=== PATIENT | female | born 1980 ===

== ENCOUNTER 2020-01-30 23:53 | Emergency (ER) | payer SELFPAY ==
[2020-01-31] MEDS ORDERED: KETOROLAC 30 MG/1 ML INJ IV ONE (01:02)
[2020-01-31] MEDS ORDERED: ONDANSETRON 4 MG/2 ML INJ IV ONE (01:02)
[2020-01-31] MEDS ORDERED: MECLIZINE 25 MG TAB PO ONE (01:02)
[2020-01-31] MEDS ORDERED: SODIUM CHLORIDE 0.9% 1000 ML 1,000 ML IV ONE (01:02)
--- NOTE | 2020-01-31 01:22 | Emergency Department Report ---
ED Dizziness HPI - General Chief Complaint: Dizziness Stated Complaint: DIZZINESS/SYNCOPE Time Seen by Provider: 01/31/20 00:46 Source: patient, EMS Mode of arrival: Stretcher Limitations: Language Barrier - History of Present Illness Initial Comments: 39-year-old female with no significant past medical history presents to the hospital planing of headache, dizziness, nausea, vomiting, syncope, and abdominal pain. [employer] used since patient is Filipino-speaking only. Patient has had a frontal headache since yesterday morning with nausea, dizzines s, and unsteady gait. This evening she developed 3 [id number] episodes of vomiting with blurry vision followed by syncope. Patient complains of persistent frontal headache at this time. She complains of a little bit of abdominal pain in the upper abdomen. - Related Data Previous Rx's Medication Instructions Recorded Last Taken Type Ibuprofen [Motrin] 800 mg PO Q8HR PRN #20 tablet 01/31/20 Unknown Rx Meclizine [Antivert] 25 mg PO TID PRN #30 tablet 01/31/20 Unknown Rx Ondansetron [Zofran Odt] 4 mg PO Q6H PRN #20 tab.rapdis 01/31/20 Unknown Rx Allergies Allergy/AdvReac Type Severity Reaction Status Date / Time No Known Allergies Allergy Unverified 01/31/20 00:25 ED Review of Systems ROS: Stated complaint: DIZZINESS/SYNCOPE Other details as noted in HPI Comment: All other systems reviewed and negative ED Past Medical Hx - Past Medical History Previous Medical History?: No - Social History Smoking Status: Never Smoker Substance Use Type: None - Medications Home Medications: Home Medications Medication Instructions Recorded Confirmed Last Taken Type Ibuprofen [Motrin] 800 mg PO Q8HR PRN #20 tablet 01/31/20 Unknown Rx Meclizine [Antivert] 25 mg PO TID PRN #30 tablet 01/31/20 Unknown Rx Ondansetron [Zofran Odt] 4 mg PO Q6H PRN #20 tab.rapdis 01/31/20 Unknown Rx ED Physical Exam - General Limitations: Language Barrier - Other Other exam information: General: No acute distress Head: Atraumatic Eyes: normal appearance, MICHELINE, + horizontal nystagmus and increased dizziness when looking to the left ENT: Moist mucous membranes Neck: Normal appearance, no midline tenderness Chest: Clear to auscultation bilaterally CV: Regular rate and rhythm Abdomen: Soft, normal bowel sounds, mild upper abdomen tenderness, nondistended, no rebound or guarding Back: Normal inspection Extremity: Normal inspection, full range of motion Neuro: Alert O x 3, no facial asymmetry, speech clear, finger nose finger intact. 5/5 upper lower extremity strength with grossly intact sensation Psych: Appropriate behavior Skin: No rash ED Course Vital Signs 01/31/20 01/31/20 01/31/20 00:12 00:16 00:29 Temperature 98.4 F Pulse Rate 65 72 72 Respiratory 10 L 17 18 Rate Blood Pressure 119/72 O2 Sat by Pulse 99 100 Oximetry 01/31/20 01/31/20 01:00 02:00 Temperature Pulse Rate 82 64 Respiratory 18 18 Rate Blood Pressure 119/72 114/66 O2 Sat by Pulse 100 100 Oximetry - Reevaluation(s) Reevaluation #1: 01/31/20 02:59 pt feels better with ed tx that included Toradol, meclizine, Zofran, and normal saline. 01/31/20 03:24 Patient was ambulated around the department and has a steady gait with only mild dizziness with initially standing and feels much better ED Medical Decision Making - Lab Data Result diagrams: 01/31/20 00:30 01/31/20 00:30 Lab Results 01/31/20 01/31/20 01/31/20 Range/Units 00:30 00:30 00:30 WBC 8.3 (4.5-11.0) K/mm3 RBC 4.23 (3.65-5.03) M/mm3 Hgb 11.3 (10.1-14.3) gm/dl Hct 34.7 (30.3-42.9) % MCV 82 (79-97) fl MCH 27 L (28-32) pg MCHC 33 (30-34) % RDW 15.7 H (13.2-15.2) % Plt Count 254 (140-440) K/mm3 Lymph % (Auto) 25.3 (13.4-35.0) % [place] % (Auto) 6.6 (0.0-7.3) % Eos % (Auto) 2.2 (0.0-4.3) % Baso % (Auto) 0.4 (0.0-1.8) % Lymph # 2.1 (1.2-5.4) K/mm3 [place] # 0.5 (0.0-0.8) K/mm3 Eos # 0.2 (0.0-0.4) K/mm3 Baso # 0.0 (0.0-0.1) K/mm3 Seg Neutrophils % 65.5 (40.0-70.0) % Seg Neutrophils # 5.4 (1.8-7.7) K/mm3 Sodium 138 (137-145) mmol/L Potassium 3.0 L (3.6-5.0) mmol/L Chloride 101.2 (98-107) mmol/L Carbon Dioxide 23 (22-30) mmol/L Anion Gap 17 mmol/L BUN 16 (7-17) mg/dL Creatinine 0.6 L (0.7-1.2) mg/dL Estimated GFR > 60 ml/min BUN/Creatinine Ratio 27 % Glucose 110 H (65-100) mg/dL Calcium 8.6 (8.4-10.2) mg/dL Magnesium (1.7-2.3) mg/dL Total Bilirubin < 0.20 (0.1-1.2) mg/dL AST 12 (5-40) units/L ALT 10 (7-56) units/L Alkaline Phosphatase 71 (35-129) units/L Total Protein 6.7 (6.3-8.2) g/dL Albumin 4.1 (3.9-5) g/dL Albumin/Globulin Ratio 1.6 % Lipase (13-60) units/L HCG, Qual Negative (Negative) 01/31/20 01/31/20 Range/Units Unknown Unknown WBC (4.5-11.0) K/mm3 RBC (3.65-5.03) M/mm3 Hgb (10.1-14.3) gm/dl Hct (30.3-42.9) % MCV (79-97) fl MCH (28-32) pg MCHC (30-34) % RDW (13.2-15.2) % Plt Count (140-440) K/mm3 Lymph % (Auto) (13.4-35.0) % [place] % (Auto) (0.0-7.3) % Eos % (Auto) (0.0-4.3) % Baso % (Auto) (0.0-1.8) % Lymph # (1.2-5.4) K/mm3 [place] # (0.0-0.8) K/mm3 Eos # (0.0-0.4) K/mm3 Baso # (0.0-0.1) K/mm3 Seg Neutrophils % (40.0-70.0) % Seg Neutrophils # (1.8-7.7) K/mm3 Sodium (137-145) mmol/L Potassium (3.6-5.0) mmol/L Chloride (98-107) mmol/L Carbon Dioxide (22-30) mmol/L Anion Gap mmol/L BUN (7-17) mg/dL Creatinine (0.7-1.2) mg/dL Estimated GFR ml/min BUN/Creatinine Ratio % Glucose (65-100) mg/dL Calcium (8.4-10.2) mg/dL Magnesium 2.00 (1.7-2.3) mg/dL Total Bilirubin (0.1-1.2) mg/dL AST (5-40) units/L ALT (7-56) units/L Alkaline Phosphatase (35-129) units/L Total Protein (6.3-8.2) g/dL Albumin (3.9-5) g/dL Albumin/Globulin Ratio % Lipase 54 (13-60) units/L HCG, Qual (Negative) - EKG Data -: EKG Interpreted by De EKG shows normal: sinus rhythm, ST-T waves (no stemi) Rate: normal - Radiology Data Radiology results: report reviewed CHEST 1 VIEW 0124 INDICATION / CLINICAL INFORMATION: syncope. COMPARISON: None available. FINDINGS: SUPPORT DEVICES: None HEART / MEDIASTINUM: No significant abnormality. LUNGS / PLEURA: Mild bibasilar atelectatic changes are noted. No areas of consolidation are seen. No pneumothorax. ADDITIONAL FINDINGS: No significant additional findings. IMPRESSION: Mild basilar atelectasis CT HEAD WITHOUT CONTRAST INDICATION: headache,n,v,synocpe TECHNIQUE: All CT scans at this location are performed using CT dose reduction for ALARA by means of automated exposure control. COMPARISON: None available. FINDINGS: BRAIN: No hemorrhage or mass effect are seen. No evidence of acute infarction is noted. ORBITS: Normal as visualized. SOFT TISSUES OF HEAD: Normal. CALVARIUM: Normal. VISUALIZED PARANASAL SINUSES AND MASTOID AIR CELLS: Clear. ADDITIONAL FINDINGS: None. IMPRESSION: No acute intracranial abnormality. CT ABDOMEN AND PELVIS WITHOUT CONTRAST INDICATION: upper abd pain, syncope CONTRAST: Without IV COMPARISON: None available. All CT scans at this location are performed using CT dose reduction for ALARA by means of automated exposure control. NOTE: Resolution is decreased and artifact is introduced by the patient's size. FINDINGS: Mild bibasilar atelectatic changes are seen. No pneumoperitoneum is noted. I see no abnormalities of the gallbladder, bile ducts , pancreas, adrenals, or spleen. Slight fatty attrition of the liver is seen with borderline enlargement and a length of 18 cm but without obvious focal lesion. No focal inflammatory changes are seen. No lymphadenopathy is noted. No evidence of bowel obstruction is seen. Appendix appears within normal limits. Tubal ligation clips are noted. Minimal free fluid in the pelvis is nonspecific. No adnexal masses are seen. No significant abdominal wall herniation is noted. IMPRESSION: No acute abnormalities are seen - Medical Decision Making 01/31/20 02:59 pt feels better with ed tx that included Toradol, meclizine, Zofran, and normal saline. 01/31/20 03:24 Patient was ambulated around the department and has a steady gait with only mild dizziness with initially standing and feels much better plan to d/c home with meds and f/u - Differential Diagnosis Vertigo, intracranial mass, ICH, ectopic Critical Care Time: No Critical care attestation.: If time is entered above; I have spent that time in minutes in the direct care of this critically ill patient, excluding procedure time. ED Disposition Clinical Impression: Vertigo, Nausea and vomiting, Syncope, Headache Disposition: DC-01 TO HOME OR SELFCARE Is pt being admited?: No Does the pt Need Aspirin: No Condition: Stable Instructions: Syncope (ED), Vertigo (ED), Acute Headache (ED) Additional Instructions: Take the medication as prescribed. Follow-up with your doctor or doctor/clinic provided. Return if symptoms worsen as indicated by your discharge instructions. Stanley el medicamento segn lo prescrito. Seguimiento con bruno mdico o mdico/clnica proporcionado. Regrese si los sntomas empeoran segn lo su cado por las instrucciones de adrianne. Prescriptions: Meclizine [Antivert] 25 mg PO TID PRN #30 tablet PRN Reason: Vertigo Ibuprofen [Motrin] 800 mg PO Q8HR PRN #20 tablet PRN Reason: Pain , Severe (7-10) Ondansetron [Zofran Odt] 4 mg PO Q6H PRN #20 tab.rapdis PRN Reason: Nausea And Vomiting Referrals: PRIMARY CAREMD [Primary Care Provider] - 3-5 Days QUINCY ARCOS MD [Staff Physician] - 3-5 Days [facility] [Provider Group] - 3-5 Days Time of Disposition: 03:28 Print Language: MARSHALLESE
[2020-01-31 01:25] LABS: Basophils % (Auto) 0.4 % (0.0-1.8); Eosinophils # (Auto) 0.2 K/mm3 (0.0-0.4); Eosinophils % (Auto) 2.2 % (0.0-4.3); Hematocrit 34.7 % (30.3-42.9); Hemoglobin 11.3 gm/dl (10.1-14.3); Lymphocytes # (Auto) 2.1 K/mm3 (1.2-5.4); Lymphocytes % (Auto) 25.3 % (13.4-35.0); Mean Corpuscular HGB Conc 33 % (30-34); Mean Corpuscular Volume 82 fl (79-97); Monocytes # (Auto) 0.5 K/mm3 (0.0-0.8); Monocytes % (Auto) 6.6 % (0.0-7.3); Platelet Count 254 K/mm3 (140-440); Red Blood Count 4.23 M/mm3 (3.65-5.03); Red Cell Distribution Width 15.7 % (13.2-15.2)
[2020-01-31 01:48] LABS: Alanine Aminotransferase 10 units/L (7-56); Albumin 4.1 g/dL (3.9-5); BUN/Creatinine Ratio 27; Blood Urea Nitrogen 16 mg/dL (7-17); Calcium 8.6 mg/dL (8.4-10.2); Hemolysis Index 6
[2020-01-31] MEDS ORDERED: POTASSIUM CHLORIDE ER 20 MEQ TAB PO ONE (01:52)
--- NOTE | 2020-01-31 02:04 | XRay Report ---
CHEST 1 VIEW 0124 INDICATION / CLINICAL INFORMATION: syncope. COMPARISON: None available. FINDINGS: SUPPORT DEVICES: None HEART / MEDIASTINUM: No significant abnormality. LUNGS / PLEURA: Mild bibasilar atelectatic changes are noted. No areas of consolidation are seen. No pneumothorax. ADDITIONAL FINDINGS: No significant additional findings. IMPRESSION: Mild basilar atelectasis Signer Name: Matthew Carrasco MD Signed: 01/31/2020 2:00 AM Workstation Name: [id number]
--- NOTE | 2020-01-31 02:15 | Cat Scan Report ---
CT HEAD WITHOUT CONTRAST INDICATION: headache,n,v,synocpe TECHNIQUE: All CT scans at this location are performed using CT dose reduction for ALARA by means of automated exposure control. COMPARISON: None available. FINDINGS: BRAIN: No hemorrhage or mass effect are seen. No evidence of acute infarction is noted. ORBITS: Normal as visualized. SOFT TISSUES OF HEAD: Normal. CALVARIUM: Normal. VISUALIZED PARANASAL SINUSES AND MASTOID AIR CELLS: Clear. ADDITIONAL FINDINGS: None. IMPRESSION: No acute intracranial abnormality. Signer Name: Matthew Carrasco MD Signed: 01/31/2020 2:11 AM Workstation Name: [id number]
--- NOTE | 2020-01-31 02:18 | Cat Scan Report ---
CT ABDOMEN AND PELVIS WITHOUT CONTRAST INDICATION: upper abd pain, syncope CONTRAST: Without IV COMPARISON: None available. All CT scans at this location are performed using CT dose reduction for ALARA by means of automated e xposure control. NOTE: Resolution is decreased and artifact is introduced by the patient's size. FINDINGS: Mild bibasilar atelectatic changes are seen. No pneumoperitoneum is noted. I see no abnorma lities of the gallbladder, bile ducts, pancreas, adrenals, or spleen. Slight fatty attrition of the l iver is seen with borderline enlargement and a length of 18 cm but without obvious focal lesion. No f ocal inflammatory changes are seen. No lymphadenopathy is noted. No evidence of bowel obstruction is seen. Appendix appears within normal limits. Tubal ligation clips are noted. Minimal free fluid in th e pelvis is nonspecific. No adnexal masses are seen. No significant abdominal wall herniation is note d. IMPRESSION: No acute abnormalities are seen Signer Name: Matthew Carrasco MD Signed: 01/31/2020 2:14 AM Workstation Name: [id number]
[2020-01-31 03:30] VITALS: BP 109/60
== END 2020-01-31 04:00 | disposition home or self-care (01) ==
LOC: ED 23:53
DX: R42 Dizziness and giddiness (principal); R11.2 Nausea with vomiting, unspecified; R55 Syncope and collapse; R51 Headache; Z79.899 Other long term (current) drug therapy
CPT/HCPCS: 36415; 70450; 71045; 74176; 80053; 83690; 83735; 84703; 85025; 96361; 96374; 96375; 99285; J1885; J2405; J7030